=== PATIENT | male | born 1985 | race Caucasian/White ===

== ENCOUNTER → 2020-12-23 | Outpatient (CLI) | payer BC | LOC: M OUTALCOH 08:40 | PROVIDERS: ATTEND Psychiatry & Neurology Psychiatry | DX: Z03.89 Encounter for observation for other suspected diseases and conditions ruled out (principal) ==

== ENCOUNTER 2021-01-01 13:16 | Outpatient (RCR) | payer BC | END 2021-01-06 | LOC: M OUTALCOH 13:16 | PROVIDERS: ATTEND Psychiatry & Neurology Psychiatry | DX: Z03.89 Encounter for observation for other suspected diseases and conditions ruled out (principal) ==

== ENCOUNTER → 2021-12-01 | Outpatient (CLI) | payer OTHER | LOC: M RAD 17:04 | PROVIDERS: ATTEND Physician Assistant | DX: S46.211A Strain of muscle, fascia and tendon of other parts of biceps, right arm, initial encounter (principal); X58.XXXA Exposure to other specified factors, initial encounter; Y92.9 Unspecified place or not applicable; Y93.9 Activity, unspecified; Y99.9 Unspecified external cause status ==

== ENCOUNTER → 2021-12-07 | Outpatient (CLI) | payer OTHER | LOC: M RAD 16:20 | PROVIDERS: ATTEND Orthopaedic Surgery | DX: S46.211A Strain of muscle, fascia and tendon of other parts of biceps, right arm, initial encounter (principal); X58.XXXA Exposure to other specified factors, initial encounter; Y92.9 Unspecified place or not applicable ==

== ENCOUNTER → 2023-12-20 | Outpatient (CLI) | payer MEDICAID | LOC: M SLEEP 20:00 | PROVIDERS: ATTEND Internal Medicine Pulmonary Disease | DX: G47.33 Obstructive sleep apnea (adult) (pediatric) (principal) ==

== ENCOUNTER → 2024-06-13 | Outpatient (CLI) | payer OTHER | LOC: M CLY 10:47 | PROVIDERS: ATTEND Family Medicine | DX: R22.42 Localized swelling, mass and lump, left lower limb (principal); M25.511 Pain in right shoulder; M89.8X1 Other specified disorders of bone, shoulder; M19.072 Primary osteoarthritis, left ankle and foot ==

== ENCOUNTER → 2024-06-13 | Outpatient (CLI) | payer OTHER | LOC: M CLY 10:36 | PROVIDERS: ATTEND Family Medicine | DX: R22.42 Localized swelling, mass and lump, left lower limb (principal); M25.511 Pain in right shoulder; M89.8X1 Other specified disorders of bone, shoulder ==

== ENCOUNTER → 2024-07-23 | Outpatient (CLI) | payer OTHER | LOC: M PLAIMG 09:18 | PROVIDERS: ATTEND Family Medicine | DX: R22.42 Localized swelling, mass and lump, left lower limb (principal); M79.672 Pain in left foot ==